=== PATIENT | female | born 1945 | race Caucasian/White ===

== ENCOUNTER 2018-10-11 02:02 | Outpatient (CLI) | payer OTHER, SELFPAY ==
[2018-10-11 08:37] LABS: Hemoglobin A1C 5.4 % (4.5-6.2)
[2018-10-11 08:53] LABS: Anion Gap 8.8 mmol/L (3-11); BUN 14 mg/dL (7-18); CO2 28.2 mmol/L (21.0-32.0); CREATININE 0.76 mg/dL (0.55-1.02); Calcium 8.7 mg/dL (8.5-10.1); Calculated LDL 147; Chloride 104 mmol/L (98-107); Cholesterol 232 mg/dL (50-200); Glucose 97 mg/dL (70-100); HDL Cholesterol 67 mg/dL (40-60); Potassium 4.1 mmol/L (3.5-5.1); Sodium 141 mmol/L (136-145); Triglyceride 91 mg/dL (30-150)
[2018-10-12 09:45] LABS: Hepatitis C Ab w Rflx HCV PCR Negative (NEGAT)
== END 2018-10-11 02:22 ==
PROVIDERS: PCP Nurse Practitioner Family; Visit Provider Nurse Practitioner Family
DX: E78.5 Hyperlipidemia, unspecified (principal)
CPT/HCPCS: 36415; 80048; 80061; 83721; 86803; 83036

== ENCOUNTER 2018-10-18 00:57 | Outpatient (CLI) | payer OTHER, SELFPAY ==
--- NOTE | 2018-10-18 09:30 | DI.MAMMO_ITS ---
SYMPTOM/DIAGNOSIS: SCREENING, Z12.31 MAMMOGRAM: Mammograms were interpreted according to the usual protocol including computer analysis with CAD system, tomosynthesis and C view imaging. The breast tissue is heterogeneously radiodense which lowers the sensitivity. There are no suspicious microcalcifications. There has been no significant interval change. SUMMARY: No evidence of malignancy. Category 1, yearly screening mammography is recommended. Breast density C. MQSA ASSESSMENT OF FINDINGS: Negative. Category 1. Patient will receive a letter notifying them of these results. Bi-RADS category C. The breasts are heterogeneously dense, which may obscure small masses.
== END 2018-10-18 01:17 ==
PROVIDERS: PCP Nurse Practitioner Family; Visit Provider Nurse Practitioner Family
DX: Z12.31 Encounter for screening mammogram for malignant neoplasm of breast (principal)
CPT/HCPCS: 77063; 77067

== ENCOUNTER 2018-11-05 13:52 | Outpatient (REF) | payer OTHER, SELFPAY ==
--- NOTE | 2018-11-05 14:10 | SKI_PTH ---
PATIENT: Cee Dee LOC: [facility] U#:[id number] AGE/SX: 73/F ROOM: RE11/05/[address]: Ye Khan DO : 1945 BED: DIS: 11/05/2018 SPEC #: [id number] RECD: 11/07/18 11:43 STATUS: DENNIS REFredy #: [id number] ABDIFATAH: 11/05/18 14:[address]: Ye Khan DEPT: Surgical Specimen RECD BY: Anjelica Chin ENTERED: 11/07/18 11:44 SP TYPE: ALBA HATHAWAY DR: HARIS Marcum Tissues: 1 - SKIN BIOPSY(SHAVE/PUNCH) Procedures: SKIN LEVEL 4 Comments: [id number]
== END 2018-11-05 14:12 ==
LOC: LBN 13:52
PROVIDERS: PCP Nurse Practitioner Family; Visit Provider Otolaryngology Otolaryngology/Facial Plastic Surgery
DX: K13.0 Diseases of lips (principal); L43.8 Other lichen planus
CPT/HCPCS: 88305

== ENCOUNTER 2019-10-24 02:58 | Outpatient (CLI) | payer OTHER, SELFPAY ==
--- NOTE | 2019-10-24 09:30 | DI.MAMMO_ITS ---
EXAM: MG MAMMO SCREENING CLINICAL HISTORY: screening,Z12.39. TECHNIQUE: Bilateral full field digital CC and MLO mammographic images were obtained with 3D tomosyn thesis and utilizing computer aided detection (CAD). COMPARISON: 2011 through 2018 FINDINGS: Masses/Architectural Distortion: None seen. Microcalcifications: No suspicious pleomorphic-type are seen. Scattered benign calcifications. Skin Thickening/Nipple Retraction: None. IMPRESSION: 1. No significant interval change with no specific features of malignancy noted. 2. Unless there is more urgent need, annual screening mammography is recommended, as per [place] [employer] guidelines. BI-RADS Category 1: Breast Density Category D: Breast Density Category D: The mammogram demonstrates the patient's breast tissue is dense. Dense mark ast tissue is very common and is not abnormal but dense breast tissue can make it harder to find canc er on a mammogram. Also, dense breast tissue may increase their breast cancer risk. This information about the result of the mammogram report was provided to the patient to raise their awareness. Use th is report when you speak with the patient about their risks for breast cancer, which includes their f amily history. At that time, you may recommend for more screening tests (Ultrasound or MRI) as they m ight be useful based on their risk. A negative radiographic report should not delay biopsy if a dominant or clinically suspicious mass is present. Up to ten percent of cancers are not identified on mammography. A negative report may reinforce clinical impression. Adenosis and dense breasts may obscure an underlying neoplasm. False positive reports average 6 to 10%.
--- NOTE | 2019-10-24 15:14 | DI.DEXA_ITS ---
EXAM: XR DEXA BONE DENSITY W/WO COLTON CLINICAL HISTORY: SCREENING FOR OSTEOPOROSIS IN POSTMENOPAUSAL WOMAN,Z78.0 TECHNIQUE: [employer] Horizon C densitometer. COMPARISON: No exams were available for comparison FINDINGS: Lateral environmental services coordinator view of the thoracic and lumbar spine shows no evidence of compression fractures. The bone mineral density measurements of the left hip correspond to a total T-score of -1.2 and a fem oral neck T-score of -1.8, in the osteopenic range. The bone mineral density measurements of the lumbar spine correspond to a total T-score of -1.2, in t he mildly osteopenic range. The bone mineral density measurements of the left forearm correspond to a T-score of the distal 3rd of -2.4, in the osteopenic range. IMPRESSION: Osteopenia of the lumbar spine, left hip and left forearm.
== END 2019-10-24 03:18 ==
PROVIDERS: PCP Nurse Practitioner Family; Visit Provider Nurse Practitioner Family
DX: Z12.31 Encounter for screening mammogram for malignant neoplasm of breast (principal); M85.88 Other specified disorders of bone density and structure, other site; Z78.0 Asymptomatic menopausal state
CPT/HCPCS: 77063; 77067; 77080

== ENCOUNTER 2019-10-25 03:54 | Outpatient (CLI) | payer OTHER, SELFPAY ==
[2019-10-25 12:24] LABS: Anion Gap 10.5 mmol/L (3-11); BUN 19 mg/dL (7-18); CO2 24.5 mmol/L (21.0-32.0); CREATININE 0.76 mg/dL (0.55-1.02); Calcium 8.7 mg/dL (8.5-10.1); Calculated LDL 138 mg/dL (<100); Chloride 104 mmol/L (98-107); Cholesterol 225 mg/dL (<200); Glucose 106 mg/dL (74-106); HDL Cholesterol 70 mg/dL (40-60); Sodium 139 mmol/L (136-145); Triglyceride 86 mg/dL (<150)
== END 2019-10-25 04:14 ==
PROVIDERS: PCP Nurse Practitioner Family; Visit Provider Nurse Practitioner Family
DX: E78.5 Hyperlipidemia, unspecified (principal)
CPT/HCPCS: 36415; 80048; 80061

== ENCOUNTER 2020-09-22 03:27 | Outpatient (CLI) | payer OTHER, SELFPAY ==
[2020-09-22 08:58] LABS: Absolute Basophil Count 0.05 10^3/uL (0.0-0.2); Absolute Eosinophil Count 0.08 10^3/uL (0.0-0.7); Absolute Lymphocyte Count 0.72 10^3/uL (1.2-3.4); Absolute Monocyte Count 0.32 10^3/uL (0.1-0.8); Absolute Neutrophil Count 2.32 10^3/uL (1.2-6.7); Basophils % 1.4; Eosinophils % 2.3; HCT 44.7 % (36.0-46.0); HGB 14.8 g/dL (11.2-15.7); Lymphocytes % 20.6; MCH 29.8 pg (27.0-33.0); MCHC 33.1 % (32.0-36.0); MCV 90.1 fL (80-95); MPV 10.2 fL (8.0-11.0); Monocytes % 9.2; Neutrophils % 66.5; Nucleated RBC 0 %; Platelet Count 157 10^3/uL (130-400); RBC 4.96 10^6/uL (3.93-5.22); WBC 3.49 10^3/uL (4.4-10.8)
== END 2020-09-22 03:28 | disposition home or self-care (01) ==
PROVIDERS: PCP Nurse Practitioner Family; Visit Provider Nurse Practitioner Family
DX: D72.819 Decreased white blood cell count, unspecified (principal)
CPT/HCPCS: 36415; 85025

== ENCOUNTER 2020-10-28 00:49 | Outpatient (CLI) | payer OTHER, SELFPAY ==
--- NOTE | 2020-10-28 08:00 | DI.MAMMO_ITS ---
Exam(s) MAMMO SCREENING EXAM: MAMMO SCREENING CLINICAL HISTORY: screening,Z12.39. TECHNIQUE: Bilateral full field digital CC and MLO mammographic images were obtained with 3D tomosyn thesis and utilizing computer aided detection (CAD). COMPARISON: Prior mammograms dating back to 2011, the most recent being October 1999. FINDINGS: The fibroglandular tissue is again noted be very dense, this decreasing the sensitivity mammogram for finding hidden underlying lesions. Asymmetric tissue in left axillary tail is unchanged from prior studies. There are no obvious new radiographic findings in the left breast. In the right breast upper outer quadrant there is some subtle architectural distortion best seen on t he MLO view. This is located approximately 9-10 cm in from the nipple. Spot compression 3D MLO and exaggerated CC views of this area recommended IMPRESSION: Very dense bilateral fibroglandular tissue. No obvious radiographic evidence of malignancy in left b reast. Subtle architectural distortion in the upper-outer quadrant of the right breast. Additional spot com pression 3D MLO and exaggerated CC views through this area are recommended. Also recommend ultrasoun d. BI-RADS Category 0 - Assessment Incomplete: Need additional imaging evaluation Breast Density - Category D - Extremely dense Breast density Category C or D implies that the patient has dense breast tissue. Dense breast tissue can make it harder to find cancer on a mammogram. Dense breast tissue is also associated with an incr eased risk of breast cancer. This information about the result of the mammogram report was provided to the patient to raise their awareness. Use this report when you speak with the patient about their risks for breast cancer, which includes their family history. At that time, you may recommend additional screening tests (Ultrasoun d or MRI) as these tests may add significant information. A negative radiographic report should not delay biopsy if a dominant or clinically suspicious mass is present. Up to ten percent of cancers are not identified on mammography. A negative report may reinforce clinical impression. Adenosis and dense breasts may obscure an underlying neoplasm. False positive reports average 6 to 10%. Patient will receive a letter notifying them of these results.
== END 2020-10-28 01:09 ==
PROVIDERS: PCP Nurse Practitioner Family; Visit Provider Nurse Practitioner Family
DX: Z12.31 Encounter for screening mammogram for malignant neoplasm of breast (principal); R92.8 Other abnormal and inconclusive findings on diagnostic imaging of breast
CPT/HCPCS: 77063; 77067

== ENCOUNTER 2020-11-05 02:45 | Outpatient (CLI) | payer OTHER, SELFPAY ==
--- NOTE | 2020-11-05 | DI.US_ITS ---
Exam(s) US BREAST RT COMPLETE EXAM: US BREAST RT COMPLETE CLINICAL HISTORY: F/U TO [facility] MAMMO AND SPOTS, ARCHITECTURAL DISTORTION RT BREAST. TECHNIQUE: Complete ultrasound of the right breast was performed including all 4 quadrants, the retr oareolar region, and the ipsilateral axilla. COMPARISON: Prior mammograms were reviewed. Today's additional mammographic view was reviewed FINDINGS: There is no evidence of solid or significant cystic lesions in all 4 quadrants of the right breast no r in the immediate retroareolar region. Scanning of the right axilla is negative for adenopathy. IMPRESSION: Negative complete right breast ultrasound. Finding on the mammogram most probably corresponds to scarring from prior excisional biopsy at this l ocation Appropriate follow-up is repeat right breast imaging in 3 months, to include repeat mammogram and ult rasound. BI-RADS Category 3 - 3 month - Probably Benign Finding: Recommend follow-up mammography in 3 months Breast Density - Category C - Heterogeneously dense Breast density Category C or D implies that the patient has dense breast tissue. Dense breast tissue can make it harder to find cancer on a mammogram. Dense breast tissue is also associated with an incr eased risk of breast cancer. This information about the result of the mammogram report was provided to the patient to raise their awareness. Use this report when you speak with the patient about their risks for breast cancer, which includes their family history. At that time, you may recommend additional screening tests (Ultrasoun d or MRI) as these tests may add significant information. A negative radiographic report should not delay biopsy if a dominant or clinically suspicious mass is present. Up to ten percent of cancers are not identified on mammography. A negative report may reinforce clinical impression. Adenosis and dense breasts may obscure an underlying neoplasm. False positive reports average 6 to 10%. Patient will receive a letter notifying them of these results.
--- NOTE | 2020-11-05 14:57 | DI.MAMMO_ITS ---
Exam(s) MG MAMMO SCREEN CALL BACK UNI EXAM: MAMMO SCREEN CALL BACK UNIL-RIGHT AND COMPLETE RIGHT BREAST ULTRASOUND CLINICAL HISTORY: F/U [facility] MAMMO, ARCHITECTURAL DISTORTION RT BREAST. TECHNIQUE: Unilateral spot mammographic images OF THE RIGHT BREAST were obtained with 3D tomosynthes is and utilizing computer aided detection (CAD). . COMPLETE RIGHT breast Ultrasound was also performed. COMPARISON: Prior mammograms were reviewed. This additional imaging was performed due to findings described on the recent screening mammogram of . FINDINGS: Additional mammographic views performed todaydo not dissipate the subtle area of architectural distor tion described on the recent screening mammogram 10/28/2020 Ultrasound performed today reveals no evidence of solid or significant cystic lesions in all 4 quadra nts nor in the immediate retroareolar region.. However during scanning today we note that there is a significant skin scar over the right upper quadrant area which corresponds to the air on the mammogra m. The patient informs me that she has had numerous remote biopsies in this area, all negative for ma lignancy. Scanning of the ipsilateral right axilla is negative for adenopathy IMPRESSION: Subtle architectural distortion most probably is related to scarring from prior biopsy. Also no discernible mass evident on ultrasound Appropriate follow-up, as discussed by myself with the patient today, is repeat right breast imaging in 3 months, with earlier imaging if a self detected breast changes noted.. The patient was informed of these findings and recommendations prior to leaving the department today. BI-RADS Category 3 - 3 month - Probably Benign Finding: Recommend follow-up mammography in 3 months Breast Density - Category C - Heterogeneously dense Breast density Category C or D implies that the patient has dense breast tissue. Dense breast tissue can make it harder to find cancer on a mammogram. Dense breast tissue is also associated with an incr eased risk of breast cancer. This information about the result of the mammogram report was provided to the patient to raise their awareness. Use this report when you speak with the patient about their risks for breast cancer, which includes their family history. At that time, you may recommend additional screening tests (Ultrasoun d or MRI) as these tests may add significant information. A negative radiographic report should not delay biopsy if a dominant or clinically suspicious mass is present. Up to ten percent of cancers are not identified on mammography. A negative report may reinforce clinical impression. Adenosis and dense breasts may obscure an underlying neoplasm. False positive reports average 6 to 10%. Patient will receive a letter notifying them of these results.
== END 2020-11-05 03:05 ==
PROVIDERS: PCP Nurse Practitioner Family; Visit Provider Nurse Practitioner Family
DX: Z12.31 Encounter for screening mammogram for malignant neoplasm of breast (principal); R92.8 Other abnormal and inconclusive findings on diagnostic imaging of breast
CPT/HCPCS: 76642; 77063; 77067

== ENCOUNTER 2021-02-19 00:31 | Outpatient (CLI) | payer OTHER, SELFPAY ==
--- NOTE | 2021-02-19 07:15 | DI.US_ITS ---
Exam(s) MG MAMMO DIAGNOSTIC UNI US BREAST RT LIMITED EXAM: MG MAMMO DIAGNOSTIC UNI CLINICAL HISTORY: 3-6 MO F/U,R92.8, F/U [facility] MAMMO. COMPARISON: 2012 through 05 November 2020 TECHNIQUE: Craniocaudal and mediolateral oblique Full Field Digital Mammography views of the right b reast with Computer Aided Diagnosis followed by Tomosynthesis and right breast ultrasound. FINDINGS: Mammography/Tomosynthesis: Masses/Architectural Distortion: Persistent area of architectural distortion in the upper outer quadr ant in area of previously noted biopsy. No definite underlying mass. Microcalcifications: No suspicious pleomorphic-type are seen. Skin Thickening/Nipple Retraction: None. Right breast US: Echotexture: Dense tissue. Shadowing: Shadowing related to previous biopsy scar. Cyst: 3 millimeters cyst 9 o'clock position 4 cm from the nipple. 4 millimeter cyst 9 o'clock positio n 5 cm from the nipple. Solid lesions: No definite masses. Ductal dilation: None. IMPRESSION: 1. Scarring in region of previous breast biopsy. No evidence of malignancy is noted. 2. Unless there is more urgent need, follow-up screening mammography is recommended, as per [place] [employer] guidelines. BI-RADS Category 3 - Probably Benign Finding: Recommend follow-up imaging in 3 months Breast Density - Category C - Heterogeneously dense Breast density category C or D implies that the patient has dense breast tissue. Dense breast tissue is very common and is not abnormal but dense breast tissue can make it harder to find cancer on a ma mmogram. Also, dense breast tissue may increase their breast cancer risk. This information about the result of the mammogram report was provided to the patient to raise their awareness. Use this report when you speak with the patient about their risks for breast cancer, which includes their family hist ory. At that time, you may recommend for more screening tests (Ultrasound or MRI) as they might be us eful based on their risk. A negative radiographic report should not delay biopsy if a dominant or clinically suspicious mass is present. Up to ten percent of cancers are not identified on mammography. A negative report may reinforce clinical impression. Adenosis and dense breasts may obscure an underlying neoplasm. False positive reports average 6 to 10%. Patient will receive a letter notifying them of these results.
== END 2021-02-19 00:51 ==
PROVIDERS: PCP Nurse Practitioner Family; Visit Provider Nurse Practitioner Family
DX: Z12.31 Encounter for screening mammogram for malignant neoplasm of breast (principal); R92.8 Other abnormal and inconclusive findings on diagnostic imaging of breast; N60.11 Diffuse cystic mastopathy of right breast; L90.5 Scar conditions and fibrosis of skin; Z98.890 Other specified postprocedural states
CPT/HCPCS: 76642; 77061; 77065; G0279

== ENCOUNTER → 2021-09-22 08:56 | Outpatient (CLI) | payer MEDICARE, SELFPAY | PROVIDERS: PCP Nurse Practitioner Family; Visit Provider Nurse Practitioner Family ==

== ENCOUNTER 2021-10-06 15:36 | Outpatient (CLI) | payer MEDICARE, SELFPAY ==
[2021-10-06 08:55] LABS: Anion Gap 7.2 mmol/L (3-11); BUN 15 mg/dL (7-18); CO2 28.8 mmol/L (21.0-32.0); CREATININE 0.9 mg/dL (0.55-1.02); Calcium 8.8 mg/dL (8.5-10.1); Chloride 104 mmol/L (98-107); Glucose 108 mg/dL (74-106); Potassium 4.2 mmol/L (3.5-5.1); Sodium 140 mmol/L (136-145)
== END 2021-10-06 15:37 | disposition home or self-care (01) ==
LOC: LBO 15:38
PROVIDERS: PCP Nurse Practitioner Family; Visit Provider Nurse Practitioner
DX: I10 Essential (primary) hypertension (principal)
CPT/HCPCS: 36415; 80048

== ENCOUNTER 2022-01-04 02:45 | Outpatient (RCR) | payer MEDICARE, SELFPAY ==
[2021-12-21] MEDS: Normal Saline Flush 10 ML SYR IVP (08:39)
[2021-12-21 08:45] LABS: Abs Immature Grans 0.02 10^3/uL (0.0-0.06); Absolute Basophil Count 0.08 10^3/uL (0.0-0.2); Absolute Eosinophil Count 0.14 10^3/uL (0.0-0.7); Absolute Monocyte Count 0.43 10^3/uL (0.1-0.8); Absolute Neutrophil Count 3.91 10^3/uL (1.2-6.7); Basophils % 1.5; Eosinophils % 2.7; HCT 41.8 % (36.0-46.0); HGB 13.7 g/dL (11.2-15.7); Immature Grans % 0.4; Lymphocytes % 13.3; MCH 29.3 pg (27.0-33.0); MCHC 32.8 % (32.0-36.0); MCV 89 fL (80-95); MPV 9.9 fL (8.0-11.0); Monocytes % 8.1; Platelet Count 180 10^3/uL (130-400); RBC 4.68 10^6/uL (3.93-5.22); RDW 13.3 % (11.7-14.6); RDW-SD 43.7 fL; WBC 5.28 10^3/uL (4.4-10.8)
[2021-12-21 09:06] LABS: ALT 23 U/L (14-59); AST 16 U/L (15-37); Albumin 3.4 g/dL (3.4-5.0); Alkaline Phosphatase 81 U/L (46-116); Anion Gap 7.6 mmol/L (3-11); BUN 15 mg/dL (7-18); Bilirubin, Total 0.5 mg/dL (0.2-1.0); CO2 29.4 mmol/L (21.0-32.0); CREATININE 0.7 mg/dL (0.55-1.02); Calcium 8.9 mg/dL (8.5-10.1); Chloride 102 mmol/L (98-107); Glucose 122 mg/dL (74-106); Potassium 3.6 mmol/L (3.5-5.1); Sodium 139 mmol/L (136-145); Total Protein 7.3 g/dL (6.4-8.2)
[2021-12-28] MEDS: Heparin 500 UNITS/5 ML SYRINGE IV (13:10)
[2021-12-28] MEDS: Normal Saline Flush 10 ML SYR IVP (13:10)
[2021-12-28 13:43] LABS: HCT 37.9 % (36.0-46.0); HGB 12.8 g/dL (11.2-15.7); MCH 29.5 pg (27.0-33.0); MCHC 33.8 % (32.0-36.0); MCV 87 fL (80-95); MPV 10.6 fL (8.0-11.0); Platelet Count 114 10^3/uL (130-400); RBC 4.34 10^6/uL (3.93-5.22); RDW 12.9 % (11.7-14.6); RDW-SD 41.4 fL
[2021-12-28 13:55] LABS: ALT 28 U/L (14-59); AST 18 U/L (15-37); Albumin 3.4 g/dL (3.4-5.0); Alkaline Phosphatase 106 U/L (46-116); Anion Gap 9.4 mmol/L (3-11); BUN 24 mg/dL (7-18); Bilirubin, Total 0.5 mg/dL (0.2-1.0); CO2 26.6 mmol/L (21.0-32.0); CREATININE 0.6 mg/dL (0.55-1.02); Calcium 8.4 mg/dL (8.5-10.1); Chloride 100 mmol/L (98-107); Glucose 160 mg/dL (74-106); Potassium 3.5 mmol/L (3.5-5.1); Sodium 136 mmol/L (136-145); Total Protein 7.2 g/dL (6.4-8.2)
[2021-12-28 14:05] LABS: Absolute Neutrophil Count 0.14 10^3/uL (1.2-6.7); WBC 0.76 10^3/uL (4.4-10.8)
[2021-12-28 14:10] LABS: Absolute Basophil Count 0.05 10^3/uL (0.0-0.2); Absolute Eosinophil Count 0.11 10^3/uL (0.0-0.7); Absolute Lymphocyte Count 0.41 10^3/uL (1.2-3.4); Absolute Monocyte Count 0.04 10^3/uL (0.1-0.8); Atypical Lymphocytes % 2; Diff Comment Manual Differential; RBC Morphology Normal
[2022-01-04] MEDS: Normal Saline Flush 10 ML SYR IVP (08:30)
[2022-01-04 08:47] LABS: Abs Immature Grans 0.89 10^3/uL (0.0-0.06); MCH 29.7 pg (27.0-33.0); MCHC 33.3 % (32.0-36.0); MCV 89 fL (80-95); MPV 9.9 fL (8.0-11.0); Platelet Count 159 10^3/uL (130-400); RBC 4.37 10^6/uL (3.93-5.22); RDW 13.5 % (11.7-14.6); RDW-SD 43.9 fL; WBC 8.64 10^3/uL (4.4-10.8)
[2022-01-04 09:20] LABS: ALT 28 U/L (14-59); AST 16 U/L (15-37); Albumin 3.6 g/dL (3.4-5.0); Alkaline Phosphatase 95 U/L (46-116); BUN 18 mg/dL (7-18); Bilirubin, Total 0.3 mg/dL (0.2-1.0); CREATININE 0.8 mg/dL (0.55-1.02); Chloride 104 mmol/L (98-107); Estimated GFR 76.79 (mL/min/1.73m2); Glucose 121 mg/dL (74-106); Potassium 3.5 mmol/L (3.5-5.1); Sodium 141 mmol/L (136-145); Total Protein 7.3 g/dL (6.4-8.2)
[2022-01-04 09:21] LABS: Absolute Neutrophil Count 6.65 10^3/uL (1.2-6.7); Bands % 8; Diff Comment Manual Differential; RBC Morphology Normal
[2022-01-04 09:22] LABS: Absolute Basophil Count 0.17 10^3/uL (0.0-0.2); Absolute Lymphocyte Count 0.95 10^3/uL (1.2-3.4); Absolute Monocyte Count 0.69 10^3/uL (0.1-0.8); Metamyelocytes % 1; Myelocytes % 1
== END 2022-01-05 23:59 | disposition home or self-care (01) ==
LOC: INF 02:45
PROVIDERS: PCP Nurse Practitioner Family; Visit Provider Internal Medicine
DX: C50.919 Malignant neoplasm of unspecified site of unspecified female breast (principal); Z45.2 Encounter for adjustment and management of vascular access device
CPT/HCPCS: 36591; 80053; 85025

== ENCOUNTER 2022-01-25 01:19 | Outpatient (RCR) | payer MEDICARE, SELFPAY ==
[2022-01-25] MEDS: Normal Saline Flush 10 ML SYR IVP (09:37)
[2022-01-25 09:46] LABS: Abs Immature Grans 0.54 10^3/uL (0.0-0.06); HCT 36.1 % (36.0-46.0); HGB 12.1 g/dL (11.2-15.7); MCH 30.3 pg (27.0-33.0); MCHC 33.5 % (32.0-36.0); MCV 91 fL (80-95); MPV 9.8 fL (8.0-11.0); Platelet Count 117 10^3/uL (130-400); RBC 3.99 10^6/uL (3.93-5.22); RDW 15.6 % (11.7-14.6); RDW-SD 50.7 fL; WBC 8.08 10^3/uL (4.4-10.8)
[2022-01-25 10:00] LABS: ALT 25 U/L (14-59); AST 13 U/L (15-37); Albumin 3.4 g/dL (3.4-5.0); Alkaline Phosphatase 109 U/L (46-116); BUN 13 mg/dL (7-18); Bilirubin, Total 0.2 mg/dL (0.2-1.0); CREATININE 0.7 mg/dL (0.55-1.02); Calcium 8.8 mg/dL (8.5-10.1); Chloride 103 mmol/L (98-107); Estimated GFR 90.14 (mL/min/1.73m2); Glucose 100 mg/dL (74-106); Potassium 3.5 mmol/L (3.5-5.1); Sodium 138 mmol/L (136-145); Total Protein 6.8 g/dL (6.4-8.2)
[2022-01-25 10:05] LABS: Absolute Lymphocyte Count 0.97 10^3/uL (1.2-3.4); Absolute Monocyte Count 0.81 10^3/uL (0.1-0.8); Absolute Neutrophil Count 5.98 10^3/uL (1.2-6.7); Bands % 8
[2022-01-25 10:06] LABS: Absolute Basophil Count 0.08 10^3/uL (0.0-0.2); Absolute Eosinophil Count 0.08 10^3/uL (0.0-0.7); Metamyelocytes % 1; Myelocytes % 1
[2022-01-25 10:07] LABS: Diff Comment Manual Differential; RBC Morphology Normal
== END 2022-02-04 23:59 | disposition home or self-care (01) ==
LOC: INF 01:19
PROVIDERS: PCP Nurse Practitioner Family; Visit Provider Internal Medicine
DX: C50.919 Malignant neoplasm of unspecified site of unspecified female breast (principal); Z45.2 Encounter for adjustment and management of vascular access device
CPT/HCPCS: 36591; 80053; 85025

== ENCOUNTER 2022-02-22 03:18 | Outpatient (RCR) | payer MEDICARE, SELFPAY ==
[2022-02-08] MEDS: Normal Saline Flush 10 ML SYR IVP (08:17)
[2022-02-08 08:38] LABS: Abs Immature Grans 0.58 10^3/uL (0.0-0.06); HCT 35.7 % (36.0-46.0); HGB 12.2 g/dL (11.2-15.7); MCH 30.5 pg (27.0-33.0); MCHC 34.2 % (32.0-36.0); MCV 89 fL (80-95); MPV 9.5 fL (8.0-11.0); Platelet Count 187 10^3/uL (130-400); RDW 16.4 % (11.7-14.6); RDW-SD 52.2 fL; WBC 6.48 10^3/uL (4.4-10.8)
[2022-02-08 08:54] LABS: Absolute Lymphocyte Count 0.65 10^3/uL (1.2-3.4); Absolute Monocyte Count 0.39 10^3/uL (0.1-0.8); Absolute Neutrophil Count 5.25 10^3/uL (1.2-6.7); Albumin 3.7 g/dL (3.4-5.0); Alkaline Phosphatase 100 U/L (46-116); Atypical Lymphocytes % 3; BUN 12 mg/dL (7-18); Bands % 2; Bilirubin, Total 0.3 mg/dL (0.2-1.0); CREATININE 0.8 mg/dL (0.55-1.02); Calcium 9.4 mg/dL (8.5-10.1); Diff Comment Manual Differential; Estimated GFR 76.79 (mL/min/1.73m2); Glucose 140 mg/dL (74-106); Metamyelocytes % 1; Myelocytes % 2; RBC Morphology Normal; Sodium 138 mmol/L (136-145); Total Protein 7.1 g/dL (6.4-8.2)
[2022-02-08 08:55] LABS: ALT 28 U/L (14-59); AST 14 U/L (15-37); Anion Gap 10.2 mmol/L (3-11); CO2 27.8 mmol/L (21.0-32.0); Chloride 100 mmol/L (98-107)
[2022-02-22] MEDS: Normal Saline Flush 10 ML SYR IVP (08:09)
[2022-02-22 08:21] LABS: HCT 31.5 % (36.0-46.0); HGB 10.5 g/dL (11.2-15.7); MCH 30.3 pg (27.0-33.0); MCHC 33.3 % (32.0-36.0); MCV 91 fL (80-95); MPV 9.5 fL (8.0-11.0); Platelet Count 220 10^3/uL (130-400); RBC 3.46 10^6/uL (3.93-5.22); RDW 18.2 % (11.7-14.6); RDW-SD 57.5 fL; WBC 5.17 10^3/uL (4.4-10.8)
[2022-02-22 08:48] LABS: ALT 31 U/L (14-59); AST 14 U/L (15-37); Albumin 3.4 g/dL (3.4-5.0); Alkaline Phosphatase 92 U/L (46-116); Anion Gap 9.6 mmol/L (3-11); BUN 10 mg/dL (7-18); Bilirubin, Total 0.3 mg/dL (0.2-1.0); CO2 26.4 mmol/L (21.0-32.0); CREATININE 0.8 mg/dL (0.55-1.02); Calcium 9.1 mg/dL (8.5-10.1); Chloride 100 mmol/L (98-107); Estimated GFR 76.79 (mL/min/1.73m2); Glucose 145 mg/dL (74-106); Potassium 3.3 mmol/L (3.5-5.1); Sodium 136 mmol/L (136-145); Total Protein 6.8 g/dL (6.4-8.2)
[2022-02-22 08:52] LABS: Absolute Lymphocyte Count 0.31 10^3/uL (1.2-3.4); Absolute Monocyte Count 0.72 10^3/uL (0.1-0.8); Absolute Neutrophil Count 3.93 10^3/uL (1.2-6.7); Bands % 14; Diff Comment Manual Differential; Metamyelocytes % 1; Myelocytes % 3
[2022-02-22 08:53] LABS: Anisocytosis 1+; Polychromasia Present
[2022-02-23 06:12] LABS: Hemoglobin A1C 6.9 % (<5.7)
== END 2022-03-07 23:59 | disposition home or self-care (01) ==
LOC: INF 03:18
PROVIDERS: PCP Nurse Practitioner Family; Visit Provider Internal Medicine
DX: C50.919 Malignant neoplasm of unspecified site of unspecified female breast (principal); R73.01 Impaired fasting glucose; Z45.2 Encounter for adjustment and management of vascular access device
CPT/HCPCS: 36591; 80053; 83036; 85025

== ENCOUNTER 2022-04-05 03:25 | Outpatient (RCR) | payer MEDICARE, SELFPAY ==
[2022-03-08] MEDS: Normal Saline Flush 10 ML SYR IVP (09:43)
[2022-03-08 09:58] LABS: Abs Immature Grans 0.05 10^3/uL (0.0-0.06); Absolute Eosinophil Count 0.13 10^3/uL (0.0-0.7); Absolute Lymphocyte Count 0.22 10^3/uL (1.2-3.4); Absolute Monocyte Count 0.85 10^3/uL (0.1-0.8); Absolute Neutrophil Count 2.43 10^3/uL (1.2-6.7); Basophils % 2.6; Eosinophils % 3.4; HCT 29.2 % (36.0-46.0); HGB 9.7 g/dL (11.2-15.7); Immature Grans % 1.3; Lymphocytes % 5.8; MCH 30.1 pg (27.0-33.0); MCHC 33.2 % (32.0-36.0); MCV 91 fL (80-95); MPV 9.4 fL (8.0-11.0); Monocytes % 22.5; Neutrophils % 64.4; Platelet Count 201 10^3/uL (130-400); RBC 3.22 10^6/uL (3.93-5.22); RDW 18.2 % (11.7-14.6); RDW-SD 60.2 fL; WBC 3.78 10^3/uL (4.4-10.8)
[2022-03-08 10:12] LABS: ALT 34 U/L (14-59); AST 26 U/L (15-37); Albumin 3.1 g/dL (3.4-5.0); Alkaline Phosphatase 80 U/L (46-116); Anion Gap 7.8 mmol/L (3-11); BUN 9 mg/dL (7-18); Bilirubin, Total 0.5 mg/dL (0.2-1.0); CO2 27.2 mmol/L (21.0-32.0); CREATININE 0.8 mg/dL (0.55-1.02); Chloride 103 mmol/L (98-107); Estimated GFR 76.79 (mL/min/1.73m2); Glucose 147 mg/dL (74-106); Potassium 3.3 mmol/L (3.5-5.1); Sodium 138 mmol/L (136-145); Total Protein 6.6 g/dL (6.4-8.2)
[2022-03-22] MEDS: Normal Saline Flush 10 ML SYR IVP (08:11)
[2022-03-22 08:28] LABS: Abs Immature Grans 0.32 10^3/uL (0.0-0.06); Absolute Basophil Count 0.13 10^3/uL (0.0-0.2); Absolute Eosinophil Count 0.21 10^3/uL (0.0-0.7); Absolute Lymphocyte Count 0.46 10^3/uL (1.2-3.4); Absolute Monocyte Count 0.46 10^3/uL (0.1-0.8); Absolute Neutrophil Count 4.85 10^3/uL (1.2-6.7); Eosinophils % 3.3; HCT 35.3 % (36.0-46.0); HGB 11.3 g/dL (11.2-15.7); Lymphocytes % 7.2; MCH 29.8 pg (27.0-33.0); MCV 93 fL (80-95); MPV 10.6 fL (8.0-11.0); Monocytes % 7.2; Neutrophils % 75.3; Platelet Count 127 10^3/uL (130-400); RBC 3.79 10^6/uL (3.93-5.22); RDW 18.6 % (11.7-14.6); RDW-SD 63.1 fL; WBC 6.43 10^3/uL (4.4-10.8)
[2022-03-22 08:49] LABS: ALT 26 U/L (14-59); AST 18 U/L (15-37); Albumin 3.6 g/dL (3.4-5.0); Alkaline Phosphatase 102 U/L (46-116); Anion Gap 11.6 mmol/L (3-11); BUN 17 mg/dL (7-18); Bilirubin, Total 0.5 mg/dL (0.2-1.0); CO2 26.4 mmol/L (21.0-32.0); Calcium 9.1 mg/dL (8.5-10.1); Chloride 100 mmol/L (98-107); Estimated GFR 58.75 (mL/min/1.73m2); Glucose 198 mg/dL (74-106); Potassium 3.4 mmol/L (3.5-5.1); Sodium 138 mmol/L (136-145)
[2022-04-05] MEDS: Normal Saline Flush 10 ML SYR IVP (08:26)
[2022-04-05 08:34] LABS: Abs Immature Grans 0.32 10^3/uL (0.0-0.06); Absolute Basophil Count 0.07 10^3/uL (0.0-0.2); Absolute Eosinophil Count 0.14 10^3/uL (0.0-0.7); Absolute Lymphocyte Count 0.52 10^3/uL (1.2-3.4); Absolute Monocyte Count 0.49 10^3/uL (0.1-0.8); Absolute Neutrophil Count 6.05 10^3/uL (1.2-6.7); Basophils % 0.9; Eosinophils % 1.8; HCT 35.5 % (36.0-46.0); HGB 11.6 g/dL (11.2-15.7); Immature Grans % 4.2; Lymphocytes % 6.9; MCHC 32.7 % (32.0-36.0); MCV 95 fL (80-95); MPV 9.8 fL (8.0-11.0); Monocytes % 6.5; Neutrophils % 79.7; Platelet Count 168 10^3/uL (130-400); RBC 3.74 10^6/uL (3.93-5.22); RDW-SD 62.3 fL; WBC 7.59 10^3/uL (4.4-10.8)
[2022-04-05 08:48] LABS: ALT 23 U/L (14-59); AST 14 U/L (15-37); Albumin 3.8 g/dL (3.4-5.0); Alkaline Phosphatase 134 U/L (46-116); Anion Gap 8.2 mmol/L (3-11); BUN 19 mg/dL (7-18); Bilirubin, Total 0.4 mg/dL (0.2-1.0); CO2 27.8 mmol/L (21.0-32.0); CREATININE 1.2 mg/dL (0.55-1.02); Calcium 9.1 mg/dL (8.5-10.1); Chloride 99 mmol/L (98-107); Estimated GFR 47.21 (mL/min/1.73m2); Glucose 198 mg/dL (74-106); Potassium 3.1 mmol/L (3.5-5.1); Sodium 135 mmol/L (136-145)
== END 2022-04-06 23:59 | disposition home or self-care (01) ==
LOC: INF 03:25
PROVIDERS: PCP Nurse Practitioner Family; Visit Provider Internal Medicine
DX: C50.919 Malignant neoplasm of unspecified site of unspecified female breast (principal); Z45.2 Encounter for adjustment and management of vascular access device
CPT/HCPCS: 36591; 80053; 85025

== ENCOUNTER 2022-04-19 01:53 | Outpatient (RCR) | payer MEDICARE, SELFPAY ==
[2022-04-19] MEDS: Normal Saline Flush 10 ML SYR IVP (14:38)
[2022-04-19 14:46] LABS: Abs Immature Grans 0.32 10^3/uL (0.0-0.06); Absolute Basophil Count 0.08 10^3/uL (0.0-0.2); Absolute Eosinophil Count 0.11 10^3/uL (0.0-0.7); Absolute Lymphocyte Count 0.53 10^3/uL (1.2-3.4); Absolute Monocyte Count 0.69 10^3/uL (0.1-0.8); Absolute Neutrophil Count 8.34 10^3/uL (1.2-6.7); Basophils % 0.8; Eosinophils % 1.1; HCT 35.1 % (36.0-46.0); HGB 11.3 g/dL (11.2-15.7); Immature Grans % 3.2; Lymphocytes % 5.3; MCH 30.5 pg (27.0-33.0); MCHC 32.2 % (32.0-36.0); MCV 95 fL (80-95); Monocytes % 6.9; Neutrophils % 82.7; Platelet Count 153 10^3/uL (130-400); RDW 16.6 % (11.7-14.6); RDW-SD 57.2 fL; WBC 10.07 10^3/uL (4.4-10.8)
[2022-04-19 15:11] LABS: ALT 23 U/L (14-59); AST 18 U/L (15-37); Albumin 3.8 g/dL (3.4-5.0); Alkaline Phosphatase 127 U/L (46-116); Anion Gap 6.9 mmol/L (3-11); BUN 13 mg/dL (7-18); Bilirubin, Total 0.5 mg/dL (0.2-1.0); CO2 27.1 mmol/L (21.0-32.0); CREATININE 0.9 mg/dL (0.55-1.02); Calcium 8.9 mg/dL (8.5-10.1); Chloride 101 mmol/L (98-107); Estimated GFR 66.67 (mL/min/1.73m2); Glucose 108 mg/dL (74-106); Potassium 4.4 mmol/L (3.5-5.1); Sodium 135 mmol/L (136-145)
== END 2022-05-07 23:59 | disposition home or self-care (01) ==
LOC: INF 01:53
PROVIDERS: PCP Nurse Practitioner Family; Visit Provider Internal Medicine
DX: C50.919 Malignant neoplasm of unspecified site of unspecified female breast (principal); Z45.2 Encounter for adjustment and management of vascular access device
CPT/HCPCS: 36591; 80053; 85025

== ENCOUNTER 2022-11-23 08:16 | Outpatient (CLI) | payer MEDICARE, SELFPAY ==
[2022-11-23 08:24] LABS: Abs Immature Grans 0.01 10^3/uL (0.0-0.06); Absolute Basophil Count 0.04 10^3/uL (0.0-0.2); Absolute Eosinophil Count 0.05 10^3/uL (0.0-0.7); Absolute Lymphocyte Count 0.63 10^3/uL (1.2-3.4); Absolute Monocyte Count 0.45 10^3/uL (0.1-0.8); Absolute Neutrophil Count 3.74 10^3/uL (1.2-6.7); Basophils % 0.8; HCT 42.6 % (36.0-46.0); HGB 14.7 g/dL (11.2-15.7); Immature Grans % 0.2; Lymphocytes % 12.8; MCH 30.2 pg (27.0-33.0); MCHC 34.5 % (32.0-36.0); MCV 88 fL (80-95); MPV 9.1 fL (8.0-11.0); Monocytes % 9.1; Neutrophils % 76.1; Platelet Count 177 10^3/uL (130-400); RBC 4.86 10^6/uL (3.93-5.22); RDW 13.6 % (11.7-14.6); RDW-SD 44.2 fL; WBC 4.92 10^3/uL (4.4-10.8)
[2022-11-23 08:39] LABS: ALT 24 U/L (14-59); AST 17 U/L (15-37); Albumin 3.9 g/dL (3.4-5.0); Alkaline Phosphatase 81 U/L (46-116); Anion Gap 8.6 mmol/L (3-11); BUN 14 mg/dL (7-18); Bilirubin, Total 0.9 mg/dL (0.2-1.0); CO2 28.4 mmol/L (21.0-32.0); CREATININE 0.9 mg/dL (0.55-1.02); Calcium 9.5 mg/dL (8.5-10.1); Chloride 100 mmol/L (98-107); Estimated GFR 66.26 (mL/min/1.73m2); Glucose 124 mg/dL (74-106); Potassium 3.2 mmol/L (3.5-5.1); Sodium 137 mmol/L (136-145); Total Protein 7.1 g/dL (6.4-8.2)
== END 2022-11-23 08:17 | disposition home or self-care (01) ==
LOC: LBO 08:17
PROVIDERS: PCP Nurse Practitioner Family; Visit Provider Internal Medicine
DX: C50.911 Malignant neoplasm of unspecified site of right female breast (principal)
CPT/HCPCS: 36415; 80053; 85025

== ENCOUNTER 2022-12-15 00:32 | Outpatient (CLI) | payer MEDICARE, SELFPAY ==
--- NOTE | 2022-12-15 06:15 | DI.DEXA_ITS ---
Exam(s) XR DEXA BONE DENSITY W/WO COLTON EXAM: XR DEXA BONE DENSITY W/WO COLTON CLINICAL HISTORY: osteopenia,screening for osteoporosis in postmenopausal woman,z78.0 TECHNIQUE: [employer] Horizon C densitometer analysis of left hip, lumbar spine and left forearm. Lat eral survey image of the thoracic and lumbar spine. COMPARISON: CR XR DEXA BONE DENSITY W/WO COLTON from 10/24/2019 FINDINGS: Lateral view of the thoracic and lumbar spine shows no evidence of compression fractures. Bone mineral density measurements of the lumbar spine correspond to a total T-score of -1.7, in the osteopenic range. This represents a 5.3 percent decrease compared with 2020. Bone mineral density measurements of the left hip correspond to a total T-score of -1.9. The femora l neck T-score is -2.3, in the osteopenic range. This represents a 10.1 percent decrease compared w ith the prior exam.. Theleft forearm bone mineral density measurements correspond to a T-score of the distal 3rd of -2.0, in the osteopenic range. 3.7 percent increase from prior, not statistically significant.. IMPRESSION: Osteopenia of the lumbar spine, hip and forearm.
== END 2022-12-15 00:52 ==
LOC: DI 00:32
PROVIDERS: PCP Nurse Practitioner Family; Visit Provider Nurse Practitioner Family
DX: Z13.820 Encounter for screening for osteoporosis (principal); Z78.0 Asymptomatic menopausal state; M81.0 Age-related osteoporosis without current pathological fracture
CPT/HCPCS: 77080

== ENCOUNTER 2023-10-03 01:28 | Outpatient (CLI) | payer MEDICARE, SELFPAY ==
[2023-10-03 13:11] LABS: Abs Immature Grans 0.02 10^3/uL (0.0-0.06); Absolute Basophil Count 0.03 10^3/uL (0.0-0.2); Absolute Eosinophil Count 0.08 10^3/uL (0.0-0.7); Absolute Lymphocyte Count 0.39 10^3/uL (1.2-3.4); Absolute Neutrophil Count 2.09 10^3/uL (1.2-6.7); Eosinophils % 2.7 %; HCT 40.8 % (36.0-46.0); HGB 13.6 g/dL (11.2-15.7); Immature Grans % 0.7 %; MCH 30.6 pg (27.0-33.0); MCHC 33.3 % (32.0-36.0); MCV 92 fL (80-95); MPV 9.6 fL (8.0-11.0); Monocytes % 13.3 %; Neutrophils % 69.3 %; Platelet Count 132 10^3/uL (130-400); RBC 4.45 10^6/uL (3.93-5.22); RDW 12.8 % (11.7-14.6); RDW-SD 43.2 fL; WBC 3.01 10^3/uL (4.4-10.8)
[2023-10-03 14:07] LABS: Calculated LDL 107 mg/dL (<100); Cholesterol 195 mg/dL (<200); HDL Cholesterol 69 mg/dL (40-60); Triglyceride 99 mg/dL (<150)
[2023-10-03 14:10] LABS: ALT 22 U/L (14-59); AST 13 U/L (15-37); Albumin 3.4 g/dL (3.4-5.0); Alkaline Phosphatase 85 U/L (46-116); Anion Gap 4.8 mmol/L (3-11); BUN 12 mg/dL (7-18); Bilirubin, Total 0.6 mg/dL (0.2-1.0); CO2 30.2 mmol/L (21.0-32.0); CREATININE 0.8 mg/dL (0.55-1.02); Calcium 8.8 mg/dL (8.5-10.1); Chloride 103 mmol/L (98-107); Estimated GFR 75.84 (mL/min/1.73m2); Glucose 116 mg/dL (74-106); Potassium 3.9 mmol/L (3.5-5.1); Sodium 138 mmol/L (136-145); Total Protein 6.5 g/dL (6.4-8.2)
[2023-10-03 14:28] LABS: Vitamin D 25 Total 30.4 ng/mL (30-100)
[2023-10-03 15:06] LABS: Hemoglobin A1C 5.6 % (<5.7)
== END 2023-10-03 01:29 | disposition home or self-care (01) ==
LOC: LBO 01:28
PROVIDERS: PCP Nurse Practitioner Family; Visit Provider Nurse Practitioner Family
DX: E78.5 Hyperlipidemia, unspecified (principal); I10 Essential (primary) hypertension; M85.80 Other specified disorders of bone density and structure, unspecified site; C50.919 Malignant neoplasm of unspecified site of unspecified female breast
CPT/HCPCS: 36415; 80053; 80061; 82306; 83036; 85025

== ENCOUNTER 2024-10-15 02:20 | Outpatient (CLI) | payer MEDICARE, SELFPAY ==
[2024-10-15 12:37] LABS: Abs Immature Grans 0.01 10^3/uL (0.0-0.06); Absolute Basophil Count 0.05 10^3/uL (0.0-0.2); Absolute Eosinophil Count 0.07 10^3/uL (0.0-0.7); Absolute Lymphocyte Count 0.77 10^3/uL (1.2-3.4); Absolute Monocyte Count 0.32 10^3/uL (0.1-0.8); Absolute Neutrophil Count 2.38 10^3/uL (1.2-6.7); Basophils % 1.4 %; Eosinophils % 1.9 %; HCT 44.8 % (36.0-46.0); HGB 14.8 g/dL (11.2-15.7); Immature Grans % 0.3 %; Lymphocytes % 21.4 %; MCH 30.3 pg (27.0-33.0); MCV 92 fL (80-95); Monocytes % 8.9 %; Neutrophils % 66.1 %; Platelet Count 144 10^3/uL (130-400); RBC 4.88 10^6/uL (3.93-5.22); RDW 13.2 % (11.7-14.6); RDW-SD 44.6 fL
[2024-10-15 12:53] LABS: ALT 23 U/L (14-59); AST 16 U/L (15-37); Albumin 3.8 g/dL (3.4-5.0); Alkaline Phosphatase 105 U/L (46-116); Anion Gap 5.9 mmol/L (3-11); BUN 13 mg/dL (7-18); Bilirubin, Total 0.6 mg/dL (0.2-1.0); CO2 32.1 mmol/L (21.0-32.0); CREATININE 0.9 mg/dL (0.55-1.02); Calcium 9.4 mg/dL (8.5-10.1); Chloride 103 mmol/L (98-107); Estimated GFR 65.44 (mL/min/1.73m2); Glucose 98 mg/dL (74-106); Potassium 3.5 mmol/L (3.5-5.1); Sodium 141 mmol/L (136-145)
[2024-10-16 09:43] LABS: HIV-1/2 Ag & Ab Screen Negative (Negative)
[2024-10-16 09:54] LABS: HBs Antibody, Quant <3.1 mIU/mL (See Note); Hep B Surface Ab Negative (See Note); Hepatitis B Core Antibody Negative (Negative); Hepatitis B Surface Antigen Negative (Negative)
== END 2024-10-15 02:21 | disposition home or self-care (01) ==
LOC: LBO 02:20
PROVIDERS: PCP Nurse Practitioner Family; Visit Provider Nurse Practitioner
DX: Z11.59 Encounter for screening for other viral diseases (principal); Z11.4 Encounter for screening for human immunodeficiency virus [HIV]; C50.919 Malignant neoplasm of unspecified site of unspecified female breast
CPT/HCPCS: 36415; 80053; 86704; 86706; 87340; 87389; 85025